=== PATIENT | male | born 1980 | race Caucasian/White ===

== ENCOUNTER 2024-08-17 07:25 | Inpatient (IN) | payer MEDICAID ==
[~2024-08-17] VITALS: Ht 172.7 cm; Wt 63.5 kg
[2024-08-17 07:31] VITALS: BP_SYST 124; PULSE 100; RESP 18; TEMP 98.2; O2SAT 100
[2024-08-17] MEDS: NACL 0.9% 1,000 ML IV ONE (08:04)
[2024-08-17] MEDS: chlordiazePOXIDE HCL 25 MG CAPSULE PO ONE (08:05)
[2024-08-17 08:06] LABS: BASOPHILS # (AUTO) 0.1 K/uL (0.0-0.2); BASOPHILS % (AUTO) 1.5 % (0.0-2.0); EOSINOPHILS # (AUTO) 0.1 K/uL (0.0-0.4); EOSINOPHILS % (AUTO) 1.1 % (0.0-4.0); HEMATOCRIT 22.1 % (36-54); LYMPHOCYTES # (AUTO) 1.3 K/uL (1.0-5.5); LYMPHOCYTES % (AUTO) 14.6 % (20.5-51.5); MEAN CORPUSCULAR HEMOGLOBIN 16 pg (27-31); MEAN CORPUSCULAR HGB CONC 28 % (32-36); MEAN CORPUSCULAR VOLUME 57 fL (79.0-98.0); MONOCYTES # (AUTO) 1.4 K/uL (0.0-1.0); MONOCYTES % (AUTO) 15.2 % (1.7-9.3); NEUTROPHILS % (AUTO) 67.6 % (40.0-70.0); PLATELET COUNT (AUTO) 302 K/uL (130-430); RED CELL DISTRIBUTION WIDTH 21.7 % (9.0-15.0)
[2024-08-17 08:18] LABS: BILIRUBIN,URINE 1+ (NEGATIVE); BLOOD, URINE NEGATIVE (NEGATIVE); CLARITY/URINE CLEAR (CLEAR); COLOR,URINE YELLOW (YELLOW); GLUCOSE,URINE NEGATIVE (NEGATIVE); KETONES,URINE TRACE (NEGATIVE); LEUKOCYTE ESTERASE ,URINE NEGATIVE (NEGATIVE); NITRITE, URINE NEGATIVE (NEGATIVE); PROTEIN URINE TRACE (NEGATIVE)
[2024-08-17 08:23] LABS: PROTHROMBIN TIME 10.6 SECS (9.5-12.5)
[2024-08-17 08:28] LABS: HEMOGLOBIN 6.2 g/dL (14.0-18.0)
[2024-08-17 08:36] LABS: ALBUMIN 3.1 g/dL (3.4-4.8); CALCIUM 8.3 mg/dL (8.4-11.0); CREATININE 0.8 mg/dL (0.55-1.30); POTASSIUM 3.4 mmol/L (3.5-5.1); TOTAL PROTEIN, SERUM 7.2 g/dL (6.4-8.3)
[2024-08-17 08:45] LABS: BARBITURATE, URINE NEGATIVE (NEG <=200); METHAMPHETAMINES SCREEN,URINE NEGATIVE (NEG <=500); URINE AMPHETAMINE NEGATIVE (NEG <=500); URINE METHADONE NEGATIVE (NEG <=200)
[2024-08-17 08:46] LABS: BENZODIAZEPINE, URINE NEGATIVE (NEG <=150); CANNABINOID, URINE POSITIVE (NEG <=50); COCAINE, URINE NEGATIVE (NEG <=150); OPIATE, URINE NEGATIVE (NEG <=100); PHENCYCLIDINE SCREEN,URINE NEGATIVE (NEG <=25); UR TRICYCLIC ANTIDEPRESSANTS NEGATIVE (NEG <=300); URINE OXYCODONE SCREEN NEGATIVE (NEG <=100)
[2024-08-17] MEDS ORDERED: MG T1TAB4 PO (10:38)
[2024-08-17] MEDS ORDERED: ACET325T53 PO (10:38)
[2024-08-17] MEDS ORDERED: MOM PO (10:38)
[2024-08-17] MEDS ORDERED: HYDR-3698 PO (10:38)
[2024-08-17] MEDS ORDERED: RISP1TAB94 PO (10:38)
[2024-08-17] MEDS ORDERED: TRAZ-250 PO (10:38)
[2024-08-17 11:09] LABS: TOTAL IRON BIND. CAPACITY 699 ug/dL (250-450)
[2024-08-17 11:16] LABS: FREE T4 (FREE THYROXINE) 0.7 ng/dL (0.6-1.6); THYROID STIMULATING HORMONE 1.85 uIu/mL (0.34-4.82)
[2024-08-17] MEDS ORDERED: [UNRECOGNIZED DRUG - OTHER] PO SCH (17:00)
[2024-08-17] MEDS ORDERED: ALGINC PO SCH (17:00)
[2024-08-17] MEDS ORDERED: MAG PO SCH (17:00)
[2024-08-17] MEDS ORDERED: SOD BICARB PO SCH (17:00)
[2024-08-17] MEDS ORDERED: ALUMINUM PO SCH (17:00)
[2024-08-17] MEDS ORDERED: traZODone HCL 50 MG TABLET (DESYREL) PO PRN (17:00)
[2024-08-17] MEDS ORDERED: ACETAMINOPHEN 325 MG TABLET PO SCH (17:00)
[2024-08-17] MEDS ORDERED: MILK OF MAGNESIA 30 ML UDC PO PRN (17:00)
[2024-08-17] MEDS ORDERED: HALOPERIDOL LACTATE 5 MG/ML VIAL IM PRN (17:15)
[2024-08-17 17:51] VITALS: BP_SYST 133; PULSE 78; RESP 16; TEMP 97.8
[2024-08-17 18:06] VITALS: BP_SYST 133; PULSE 78; RESP 17; TEMP 97.8; O2SAT 100
[2024-08-17] MEDS ORDERED: FLU VACC QS2023-24(6MOS UP)/PF 0.5 ML/SYR SYRINGE I.M. PRN (18:15)
[2024-08-17 18:24] VITALS: O2SAT 100
[2024-08-17] MEDS: MULTIVITAMINS TAB 1 TABLET PO ONE (18:37)
[2024-08-17] MEDS: POTASSIUM CHLORIDE 20 MEQ/PKT PACKET PO ONE (19:48)
[2024-08-17 20:00] VITALS: BP_SYST 119; PULSE 99; RESP 18; TEMP 97.6; O2SAT 98
[2024-08-17] MEDS: SOD FERRIC GLUC COMPLEX/SUC 125 MG in NS 100 ML IV SCH (21:11)
[2024-08-17] MEDS: PANTOPRAZOLE SODIUM 40 MG/VIAL (PROTONIX) IVP SCH (21:20)
[2024-08-17] MEDS: risperiDONE 1 MG TABLET (RisperDAL) PO SCH (21:22)
[2024-08-17 21:33] VITALS: O2SAT 98
[2024-08-18] VITALS (8 sets, daily range): BP systolic 118–125; PULSE 76–90; RESP 16–18; TEMP 97.6–98.1; O2SAT 98–100
[2024-08-18 07:13] LABS: HEMATOCRIT 30.1 % (36-54); HEMOGLOBIN 8.9 g/dL (14.0-18.0); MEAN CORPUSCULAR HEMOGLOBIN 19 pg (27-31); MEAN CORPUSCULAR HGB CONC 30 % (32-36); MEAN CORPUSCULAR VOLUME 64 fL (79.0-98.0); PLATELET COUNT (AUTO) 277 K/uL (130-430); RED CELL DISTRIBUTION WIDTH 30.2 % (9.0-15.0); WHITE BLOOD COUNT (AUTO) 9.6 K/uL (4.8-10.8)
[2024-08-18 07:32] LABS: ALBUMIN 2.9 g/dL (3.4-4.8); CALCIUM 8.4 mg/dL (8.4-11.0); CREATININE 0.63 mg/dL (0.55-1.30); POTASSIUM 3.4 mmol/L (3.5-5.1); TOTAL PROTEIN, SERUM 6.8 g/dL (6.4-8.3)
[2024-08-18] MEDS: MULTIVITAMINS TAB 1 TABLET PO SCH (08:20)
[2024-08-18 10:19] LABS: BASOPHILS % (MANUAL) 0 % (0-2); EOSINOPHILS % (MANUAL) 1 % (0-7); LYMPHOCYTES % (MANUAL) 14 % (20-46); MONOCYTES % (MANUAL) 10 % (0-11)
[2024-08-18 10:20] LABS: ANISOCYTOSIS 3+; HYPOCHROMASIA 2+; OVALOCYTES FEW; PLATELET ESTIMATE ADEQUATE (ADEQUATE); TARGET CELLS FEW; TEAR DROP CELLS RARE
[2024-08-18] MEDS: POTASSIUM CHLORIDE 20 MEQ TABLET.ER PO ONE (10:57)
[2024-08-18] MEDS: risperiDONE 1 MG TABLET (RisperDAL) PO SCH (21:25)
[2024-08-19] MEDS ORDERED: BALSAM PERU/CASTOR OIL 56.7 GM OINT...G. TP SCH (09:00)
== END 2024-08-19 23:00 | disposition home or self-care (01) | DRG 663 ==
LOC: SED 07:25 → SMU 10:01 → UNDODISIN 08-24 19:30
PROVIDERS: ADMIT Internal Medicine; ATTEND Internal Medicine
PROC: 30233N1 Transfusion of Nonautologous Red Blood Cells into Peripheral Vein, Percutaneous Approach (ICD-10-PCS; principal; 2024-08-17)
DX: D50.9 Iron deficiency anemia, unspecified (principal); E43 Unspecified severe protein-calorie malnutrition; F19.10 Other psychoactive substance abuse, uncomplicated; F20.9 Schizophrenia, unspecified; Z79.899 Other long term (current) drug therapy; Z68.20 Body mass index [BMI] 20.0-20.9, adult
CPT/HCPCS: 36415; 80053; 80307; 81001; 81003; 83540; 83550; 83690; 84439; 84443; 85007; 85025; 85027; 85610; 85730; 86886; 86900; 86901; 86920; 93005; 99285; J2470; J2916; J7030; P9021